=== PATIENT | female | born 1975 | race Two or more races ===

== ENCOUNTER 2018-07-22 20:00 | Emergency (ER) | payer OTHER ==
[~2018-07-22] VITALS: Ht 162.6 cm; Wt 61.2 kg
[2018-07-22 20:04] VITALS: BP 116/69
--- NOTE | 2018-07-22 20:04 | NUR ---
ED Nurse Note: Patient presents with complaints of left arm pain. 8/10 on pain scale.
[2018-07-22] MEDS ORDERED: NKM (20:08)
--- NOTE | 2018-07-22 20:32 | NUR ---
ED Nurse Note: patient is waiting with family member at bedside, post xray.
[2018-07-22] MEDS ORDERED: TYLENOL EXTRA500 MG ORAL (20:49)
--- NOTE | 2018-07-22 20:55 | NUR ---
ED Nurse Note: Patient discharged in stable condition, accompanied by family member. patient ambulatory with steady gait, ID band removed, patient departed with all belongings
--- NOTE | 2018-07-23 11:27 | Diagnostic Imaging Report ---
Indication: Pain Findings: 2 views of the left humerus were obtained. No acute fractures, malalignment, erosions or periostitis are identified. Bone mineralization is within normal limits. Soft tissues are unremarkable. Impression: No acute injury.
--- NOTE | 2018-07-23 11:28 | Diagnostic Imaging Report ---
Indication: left shoulder pain Findings: 3 views of the left shoulder were obtained. Alignment of the left shoulder is normal. No acute fracture is identified. Soft tissues are unremarkable. Impression: No acute injury
--- NOTE | 2018-07-24 14:36 | Emergency Room Report ---
History of Present Illness General Chief Complaint: Upper Extremity Injury Source: Patient Present Illness HPI 43-year-old female presents ED for evaluation. Complaining of left shoulder pain. Started a few weeks ago after throwing a wheelchair. [place] a pain in her left shoulder. Throbbing, 7 out of 10, nonradiating. Notes pain with abduction of her left shoulder. Denies any other injuries. No other aggravating relieving factors. Denies any other associated symptoms Allergies: Coded Allergies: PENICILLINS (Verified Allergy, Unknown, 07/22/18) Patient History Past Medical History: none Past Surgical History: none Pertinent Family History: none Social History: Denies: smoking, alcohol use, drug use Last Menstrual Period: currently on it Now: No : 0 Para: 0 Immunizations: UTD Reviewed Nursing Documentation: PMH: Agreed; PSxH: Agreed Nursing Documentation-PMH Past Medical History: No Stated History Review of Systems All Other Systems: negative except mentioned in HPI Physical Exam Vital Signs Date Time Temp Pulse Resp B/P (MAP) Pulse Ox O2 Delivery O2 Flow Rate FiO2 07/22/18 20:04 98.1 90 18 116/69 98 Room Air Sp02 EP Interpretation: reviewed, normal General Appearance: no apparent distress, alert, GCS 15, non-toxic Head: normocephalic Eyes: bilateral eye normal inspection, bilateral eye PERRL ENT: normal ENT inspection Neck: normal inspection Respiratory: normal inspection Cardiovascular #1: normal inspection Gastrointestinal: normal inspection Rectal: deferred Genitourinary: no CVA tenderness Musculoskeletal: tender - L shoulder Neurologic: alert, oriented x3, responsive, motor strength/tone normal, sensory intact, speech normal Psychiatric: normal inspection Skin: normal inspection Lymphatic: normal inspection Procedures Splinting Splinting : Consent: Verbal Pre-Made Type: shoulder sling Pre-Proc Neuro Vasc Exam: normal Post-Proc Neuro Vasc Exam: normal Patient Tolerated: Well Complications: None Medical Decision Making Diagnostic Impression: Primary Impression: Shoulder injury Qualified Codes: S49.92XA - Unspecified injury of left shoulder and upper arm , initial encounter ER Course Hospital Course 43 yo F presents with L shoulder pain Differential diagnoses include: Fracture, dislocation, sprain, contusion Clinical course Patient placed on stretcher. After initial history and physical, I ordered xrays L shoulder/humerus patient declined pain meds here Xrays prelim read shows no acute fracture/dislocation. placed in shoulder sling Clinically consideration for rotator cuff injury with pain with abduction. Discussed findings with patient. We'll treat conservatively which shoulder sling, modified activity, NSAIDs, ice. We'll also provide orthopedic referrals. Safe for discharge or close outpatient follow-up Diagnosis - shoulder injury Stable and discharged to home with prescription for tylenol. apply ice, keep elevated. weight bear as tolerated. Followup with PMD. Return to ED if symptoms recur or worsen Other X-Ray Diagnostic Results Other X-Ray Diagnostic Results #1: X-Ray ordered: L shoulder # of Views/Limited Vs Complete: 3 View Indication: Pain EP Interpretation: Yes Interpretation: no dislocation, no soft tissue swelling, no fractures Impression: No acute disease Electronically Signed by: Electronically signed by Sonido Norton MD Other X-Ray Diagnostic Results #2: X-Ray ordered: L humerus # of Views/Limited Vs Complete: 2 View Indication: Pain EP Interpretation: Yes Interpretation: no dislocation, no soft tissue swelling, no fractures Impression: No acute disease Electronically Signed by: Electronically signed by Sonido Norton MD Last Vital Signs Date Time Temp Pulse Resp B/P (MAP) Pulse Ox O2 Delivery O2 Flow Rate FiO2 07/22/18 20:04 98.1 78 18 116/69 98 Room Air Status: improved Disposition: HOME, SELF-CARE Condition: Stable Scripts Acetaminophen* (TYLENOL EXTRA STRENGTH*) 500 Mg Tablet 500 MG ORAL Q8H PRN for Prn Headache/Temp > 101, #30 TAB 0 Refills Prov: Sonido Norton MD 07/22/18 Referrals: [facility],REFERRING (PCP) Kosta Mays MD [facility] Open 24 hour /7 days a week by Appointment Only [address] [facility] [address] Patient Instructions: Surgery for Rotator Cuff Tear With Rehab-[facility] Sonido Norton MD Jul 24, 2018 14:35
== END 2018-07-22 20:58 | disposition home or self-care (01) ==
LOC: EMR 20:42
DX: S49.92XA Unspecified injury of left shoulder and upper arm, initial encounter (principal); X50.9XXA Other and unspecified overexertion or strenuous movements or postures, initial encounter; Y92.9 Unspecified place or not applicable; Z88.0 Allergy status to penicillin
CPT/HCPCS: 99284